=== PATIENT | female | born 1980 | race Caucasian/White ===

== ENCOUNTER 2019-10-13 17:20 | Emergency (ER) | payer OTHER ==
[~2019-10-13] VITALS: Ht 160 cm; Wt 77.1 kg
[~2019-10-13 17:20] MED LIST: IBUPROFEN 400400 M2 PO; IBUPROFEN 600600 M1 PO; IBUPROFEN 800800 MG PO; NOHOMEMEDICATIONS; NORCO 5-325 TA1 EACH PO; ULTRAM 50MG TAB50 MG PO
[2019-10-13] MEDS ORDERED: FLEXERIL PO (19:27)
[2019-10-13] MEDS ORDERED: IBUPROFEN 600600 M1 PO (19:27)
[2019-10-13 21:00] VITALS: BP 132/65
== END 2019-10-13 21:10 | disposition home or self-care (01) ==
LOC: ER 17:20
DX: M54.6 Pain in thoracic spine (principal); M41.9 Scoliosis, unspecified; G62.9 Polyneuropathy, unspecified; Z86.73 Personal history of transient ischemic attack (TIA), and cerebral infarction without residual deficits; W10.9XXA Fall (on) (from) unspecified stairs and steps, initial encounter; Y93.89 Activity, other specified; Y92.89 Other specified places as the place of occurrence of the external cause; Y99.9 Unspecified external cause status